=== PATIENT | female | born 1970 | race Two or more races ===

== ENCOUNTER 2017-03-27 09:37 | Inpatient (IN) | payer MEDICAID ==
[~2017-03-27] VITALS: Ht 162.6 cm; Wt 81.0 kg
[2017-03-27 10:27] LABS: Basophils # (auto) 0 uL; Basophils % (auto) 0.4 % (0.0-2.0); CONDITION Y; Eosinophils # (auto) 0 uL; Eosinophils % (auto) 0.5 % (0.0-7.0); Hematocrit 38.3 % (36.0-46.0); Hemoglobin 12.6 g/dL (12.2-16.2); Lymphocytes # (auto) 2.4 uL; Lymphocytes % (auto) 32.3 % (10.0-50.0); Mean Corpuscular Hemoglobin 29.4 pg (28.0-32.0); Mean Corpuscular Hgb Conc. 32.9 g/dL (32.0-36.0); Mean Corpuscular Volume 89.4 fL (80.0-100.0); Mean Platelet Volume 8.5 fL (7.4-10.4); Monocytes # (auto) 0.4 uL; Monocytes % (auto) 5.3 % (0.0-12.0); Neutrophils # (auto) 4.5 uL; Neutrophils % (auto) 61.5 % (37.0-80.0); Platelet Count (auto) 331 10^3/uL (140-450); Red Cell Distribution Width 14.2 % (11.6-16.0); White Blood Cell 7.4 10^3/uL (4.4-10.8)
[2017-03-27] MEDS ORDERED: MORPHINE SULF INJ 2 MG/ML SYRINGE 1ML IV ONE (10:30)
[2017-03-27] MEDS ORDERED: ONDANSETRON HCL 4 MG/2 ML VIAL IV ONE (10:30)
[2017-03-27 10:43] LABS: Urine Bilirubin Negative (Negative); Urine Blood 2+ /uL (Negative); Urine Color Yellow (Yellow); Urine Glucose Normal (Normal); Urine Ketone Negative (Negative); Urine Mucus FEW (None Seen); Urine Nitrite Negative (Negative); Urine RBC 7 /hpf (0 - 4); Urine Squamous Epithelial Cell FEW /hpf (<5); Urine Urobilinogen Normal (Negative); Urine pH 6.5 (5.0-8.0)
[2017-03-27] MEDS ORDERED: SODIUM CHLORIDE 0.9% 1,000 ML IV ONE (10:45)
[2017-03-27 10:50] LABS: Albumin 3.4 g/dL (3.4-5.0); BUN/Creatinine Ratio 16.1; Bilirubin, Total 0.3 mg/dL (0.2-1.0); Calcium 8.6 mg/dL (8.5-10.1); Potassium 3.7 mmol/L (3.5-5.1); Total Protein 7.1 g/dL (6.4-8.2)
[2017-03-27] MEDS ORDERED: cefTRIAXone 1GM/50ML D5W 50 ML IV ONE (11:30)
[2017-03-27 11:38] LABS: INR 0.94 (0.9-1.15); Partial Thromboplastin Time 26.7 sec (22.64-33.71); Prothrombin Time 10.2 sec (9.37-12.3)
[2017-03-27] MEDS ORDERED: LORazepam 0.5 MG TAB PO PRN (11:45)
[2017-03-27] MEDS ORDERED: ACETAMINOPHEN 500 MG TAB PO PRN (11:45)
[2017-03-27] MEDS ORDERED: TEMAZEPAM 15 MG CAP PO PRN (11:45)
[2017-03-27] MEDS: metroNIDAZOLE 500MG/100ML 100 ML IV SCH ×2 (12:54→17:21)
[2017-03-27] MEDS: FAMOTIDINE (10MG/ML) 2ML VL IV SCH ×2 (12:54→20:48)
[2017-03-27] MEDS: SODIUM CHLORIDE 0.9% 1,000 ML IV SCH ×2 (12:54→20:48)
[2017-03-27 15:00] VITALS: BP 140/74
[2017-03-27 16:34] VITALS: BP 140/74
[2017-03-27 17:00] VITALS: BP 135/73
[2017-03-27] MEDS: MORPHINE SULFATE 4 MG/ML SYRG IV PRN (17:22)
[2017-03-27] MEDS: PROMETHAZINE HCL 25 MG/ML 1ML IV PRN (17:22)
[2017-03-27 22:00] VITALS: BP 111/57
[2017-03-28] MEDS: metroNIDAZOLE 500MG/100ML 100 ML IV SCH ×5 (00:19→23:38)
[2017-03-28 04:39] VITALS: BP 92/50
[2017-03-28 06:02] LABS: Basophils # (auto) 0 uL; Basophils % (auto) 0.5 % (0.0-2.0); CONDITION Y; Eosinophils # (auto) 0.1 uL; Eosinophils % (auto) 1.3 % (0.0-7.0); Hematocrit 33.7 % (36.0-46.0); Lymphocytes # (auto) 3.1 uL; Lymphocytes % (auto) 40.3 % (10.0-50.0); Mean Corpuscular Hemoglobin 29.3 pg (28.0-32.0); Mean Corpuscular Hgb Conc. 32.7 g/dL (32.0-36.0); Mean Corpuscular Volume 89.6 fL (80.0-100.0); Mean Platelet Volume 8.5 fL (7.4-10.4); Monocytes # (auto) 0.5 uL; Monocytes % (auto) 6.1 % (0.0-12.0); Neutrophils % (auto) 51.8 % (37.0-80.0); Platelet Count (auto) 276 10^3/uL (140-450); Red Cell Distribution Width 14.4 % (11.6-16.0); White Blood Cell 7.7 10^3/uL (4.4-10.8)
[2017-03-28 06:31] LABS: Albumin 2.8 g/dL (3.4-5.0); BUN/Creatinine Ratio 12.5; Bilirubin, Total 0.4 mg/dL (0.2-1.0); Calcium 7.9 mg/dL (8.5-10.1); Potassium 3.8 mmol/L (3.5-5.1)
[2017-03-28 07:18] VITALS: BP 95/52
[2017-03-28] MEDS: SODIUM CHLORIDE 0.9% 1,000 ML IV SCH ×2 (10:59→17:43)
[2017-03-28] MEDS: cefTRIAXone 1GM/50ML D5W 50 ML IV SCH (10:59)
[2017-03-28 11:45] VITALS: BP 117/65
[2017-03-28] MEDS: BOOST PLUS 8 ounce PO SCH ×3 (12:58→22:00)
[2017-03-28] MEDS: FAMOTIDINE (10MG/ML) 2ML VL IV SCH ×2 (15:29→22:00)
[2017-03-28 16:29] VITALS: BP 127/65
[2017-03-28] MEDS: SUCRALFATE 1 GM/10 ML ORAL SUSP PO SCH ×2 (17:24→22:00)
[2017-03-28 22:00] VITALS: BP 116/66
[2017-03-28] MEDS ORDERED: LORazepam 2MG/ML-1ML VIAL IV PRN (22:00)
[2017-03-29] MEDS: SODIUM CHLORIDE 0.9% 1,000 ML IV SCH ×3 (03:06→21:07)
[2017-03-29 05:00] VITALS: BP 99/54
[2017-03-29] MEDS: BOOST PLUS 8 ounce PO SCH ×4 (05:14→21:07)
[2017-03-29] MEDS: SUCRALFATE 1 GM/10 ML ORAL SUSP PO SCH ×4 (05:14→21:07)
[2017-03-29] MEDS: metroNIDAZOLE 500MG/100ML 100 ML IV SCH ×3 (05:14→17:24)
[2017-03-29 06:37] LABS: Calcium 8.2 mg/dL (8.5-10.1)
[2017-03-29 06:39] LABS: BUN/Creatinine Ratio 8.6
[2017-03-29 06:42] LABS: Bilirubin, Total 0.3 mg/dL (0.2-1.0); Total Protein 6.7 g/dL (6.4-8.2)
[2017-03-29 07:50] VITALS: BP 118/63
[2017-03-29 07:52] LABS: Basophils # (auto) 0 uL; Basophils % (auto) 0.4 % (0.0-2.0); CONDITION Y; Eosinophils # (auto) 0.1 uL; Eosinophils % (auto) 1.2 % (0.0-7.0); Hematocrit 39.7 % (36.0-46.0); Hemoglobin 12.9 g/dL (12.2-16.2); Lymphocytes # (auto) 2.2 uL; Lymphocytes % (auto) 23.9 % (10.0-50.0); Mean Corpuscular Hemoglobin 30.1 pg (28.0-32.0); Mean Corpuscular Hgb Conc. 32.6 g/dL (32.0-36.0); Mean Corpuscular Volume 92.3 fL (80.0-100.0); Mean Platelet Volume 8.8 fL (7.4-10.4); Monocytes # (auto) 0.5 uL; Monocytes % (auto) 5.3 % (0.0-12.0); Neutrophils # (auto) 6.3 uL; Neutrophils % (auto) 69.2 % (37.0-80.0); Platelet Count (auto) 253 10^3/uL (140-450); Red Cell Distribution Width 14.4 % (11.6-16.0); White Blood Cell 9.1 10^3/uL (4.4-10.8)
[2017-03-29 08:00] VITALS: BP 118/63
[2017-03-29] MEDS: cefTRIAXone 1GM/50ML D5W 50 ML IV SCH (09:17)
[2017-03-29 12:04] VITALS: BP_SYST 116; BP_SYST 130; BP_DIAS 75; BP_DIAS 83
[2017-03-29] MEDS: FAMOTIDINE (10MG/ML) 2ML VL IV SCH ×2 (12:24→21:07)
[2017-03-29 17:15] VITALS: BP 118/72
[2017-03-29 22:00] VITALS: BP 125/70
[2017-03-30 05:00] VITALS: BP 120/65
[2017-03-30] MEDS: metroNIDAZOLE 500MG/100ML 100 ML IV SCH ×5 (05:54→23:37)
[2017-03-30] MEDS: SUCRALFATE 1 GM/10 ML ORAL SUSP PO SCH ×4 (05:54→21:04)
[2017-03-30] MEDS: BOOST PLUS 8 ounce PO SCH ×4 (05:54→22:03)
[2017-03-30 06:14] LABS: Basophils # (auto) 0 uL; Basophils % (auto) 0.1 % (0.0-2.0); CONDITION Y; Eosinophils # (auto) 0.1 uL; Eosinophils % (auto) 0.7 % (0.0-7.0); Hematocrit 39.2 % (36.0-46.0); Lymphocytes # (auto) 1.9 uL; Lymphocytes % (auto) 15.3 % (10.0-50.0); Mean Corpuscular Hemoglobin 29.6 pg (28.0-32.0); Mean Corpuscular Hgb Conc. 33.3 g/dL (32.0-36.0); Mean Platelet Volume 8.6 fL (7.4-10.4); Monocytes # (auto) 0.6 uL; Monocytes % (auto) 4.8 % (0.0-12.0); Neutrophils # (auto) 9.7 uL; Neutrophils % (auto) 79.1 % (37.0-80.0); Platelet Count (auto) 322 10^3/uL (140-450); Red Cell Distribution Width 14.4 % (11.6-16.0); White Blood Cell 12.3 10^3/uL (4.4-10.8)
[2017-03-30 08:10] VITALS: BP 102/70
[2017-03-30] MEDS: cefTRIAXone 1GM/50ML D5W 50 ML IV SCH (09:00)
[2017-03-30] MEDS: SODIUM CHLORIDE 0.9% 1,000 ML IV SCH ×2 (09:43→19:43)
[2017-03-30] MEDS: FAMOTIDINE (10MG/ML) 2ML VL IV SCH ×2 (09:55→23:37)
[2017-03-30 10:33] LABS: Albumin 3.2 g/dL (3.4-5.0); Bilirubin, Total 0.2 mg/dL (0.2-1.0); Calcium 8.6 mg/dL (8.5-10.1); Potassium 3.7 mmol/L (3.5-5.1)
[2017-03-30 10:37] LABS: INR 0.95 (0.9-1.15); Partial Thromboplastin Time 23.8 sec (22.64-33.71); Prothrombin Time 10.3 sec (9.37-12.3)
[2017-03-30 12:30] VITALS: BP 105/58
[2017-03-30 16:25] VITALS: BP 117/66
[2017-03-30] MEDS: HYDROcodone-ACET 5/325MG TAB PO PRN (21:05)
[2017-03-30 22:00] VITALS: BP 142/75
[2017-03-31 05:00] VITALS: BP 96/53
[2017-03-31] MEDS: SODIUM CHLORIDE 0.9% 1,000 ML IV SCH ×2 (05:43→15:43)
[2017-03-31] MEDS: BOOST PLUS 8 ounce PO SCH ×5 (06:00→22:00)
[2017-03-31] MEDS: metroNIDAZOLE 500MG/100ML 100 ML IV SCH ×4 (06:22→23:49)
[2017-03-31] MEDS: SUCRALFATE 1 GM/10 ML ORAL SUSP PO SCH ×4 (06:25→22:04)
[2017-03-31 06:48] LABS: Basophils # (auto) 0 uL; Basophils % (auto) 0.5 % (0.0-2.0); CONDITION Y; Eosinophils # (auto) 0.2 uL; Eosinophils % (auto) 2.5 % (0.0-7.0); Hematocrit 36.3 % (36.0-46.0); Hemoglobin 12.2 g/dL (12.2-16.2); Lymphocytes # (auto) 2.6 uL; Mean Corpuscular Hgb Conc. 33.6 g/dL (32.0-36.0); Mean Corpuscular Volume 89.2 fL (80.0-100.0); Mean Platelet Volume 8.4 fL (7.4-10.4); Monocytes # (auto) 0.6 uL; Monocytes % (auto) 7.5 % (0.0-12.0); Neutrophils # (auto) 4.9 uL; Neutrophils % (auto) 58.5 % (37.0-80.0); Platelet Count (auto) 314 10^3/uL (140-450); Red Cell Distribution Width 14.3 % (11.6-16.0); White Blood Cell 8.4 10^3/uL (4.4-10.8)
[2017-03-31 07:10] LABS: Bilirubin, Total 0.2 mg/dL (0.2-1.0); Calcium 7.9 mg/dL (8.5-10.1); Total Protein 6.5 g/dL (6.4-8.2)
[2017-03-31] MEDS: cefTRIAXone 1GM/50ML D5W 50 ML IV SCH (08:11)
[2017-03-31] MEDS ORDERED: METOCLOPRAMIDE HCL 5MG/ml INJ 2ml VIAL IV ONE (08:45)
[2017-03-31] MEDS ORDERED: HYDROmorphone HCL 2 MG/ML VL IV PRN (08:45)
[2017-03-31] MEDS ORDERED: KETOROLAC TROMETH 30 MG/ML 1ML VIAL IV ONE (08:45)
[2017-03-31] MEDS ORDERED: GLYCOPYRROLATE 0.2 MG/ML 1ML VIAL ONE (08:54)
[2017-03-31] MEDS ORDERED: KETOROLAC TROMETH 60MG/2ML VIAL IM ONE (08:54)
[2017-03-31] MEDS ORDERED: NEOSTIGMINE 1 MG/ML INJ (10mg/10ML VIAL) ONE (08:54)
[2017-03-31] MEDS ORDERED: SODIUM CHLORIDE LOCK 10 ML ONE (08:54)
[2017-03-31] MEDS ORDERED: PROPOFOL 10 MG/ML 20 ML IV ONE (08:54)
[2017-03-31] MEDS ORDERED: ROCURONIUM 10MG/ML 10ML VIAL IV ONE (08:54)
[2017-03-31] MEDS ORDERED: MEPERIDINE HCL (50 MG/ML) 1 ML VIAL ONE (08:54)
[2017-03-31] MEDS ORDERED: MIDAZOLAM HCL 1MG/1ML-2 ML VIAL ONE (08:54)
[2017-03-31] MEDS ORDERED: fentaNYL CITRATE 100 MCG/2 ML VL ONE (08:54)
[2017-03-31] MEDS: MORPHINE SULFATE 4 MG/ML SYRG IV PRN ×2 (11:32→18:38)
[2017-03-31] MEDS: PROMETHAZINE HCL 25 MG/ML 1ML IV PRN ×2 (11:32→18:38)
[2017-03-31] MEDS: FAMOTIDINE (10MG/ML) 2ML VL IV SCH ×2 (11:45→23:49)
[2017-03-31 13:00] VITALS: BP 163/74
[2017-03-31] MEDS: HYDROcodone-ACET 5/325MG TAB PO PRN ×2 (14:58→20:40)
[2017-03-31 16:39] VITALS: BP 161/95
[2017-03-31 23:07] VITALS: BP 126/69
[2017-04-01] VITALS (7 sets, daily range): BP systolic 100–129; BP diastolic 57–68
[2017-04-01] MEDS: SODIUM CHLORIDE 0.9% 1,000 ML IV SCH ×3 (01:43→22:33)
[2017-04-01 05:11] LABS: Basophils # (auto) 0 uL; Basophils % (auto) 0.1 % (0.0-2.0); CONDITION Y; Eosinophils # (auto) 0 uL; Hematocrit 34.6 % (36.0-46.0); Hemoglobin 11.5 g/dL (12.2-16.2); Lymphocytes # (auto) 1.4 uL; Lymphocytes % (auto) 9.1 % (10.0-50.0); Mean Corpuscular Hemoglobin 29.8 pg (28.0-32.0); Mean Corpuscular Hgb Conc. 33.2 g/dL (32.0-36.0); Mean Corpuscular Volume 89.7 fL (80.0-100.0); Mean Platelet Volume 8.7 fL (7.4-10.4); Monocytes # (auto) 0.9 uL; Monocytes % (auto) 6.1 % (0.0-12.0); Neutrophils # (auto) 13.2 uL; Neutrophils % (auto) 84.7 % (37.0-80.0); Platelet Count (auto) 314 10^3/uL (140-450); Red Cell Distribution Width 14.6 % (11.6-16.0); White Blood Cell 15.5 10^3/uL (4.4-10.8)
[2017-04-01 05:35] LABS: Albumin 2.8 g/dL (3.4-5.0); Calcium 7.8 mg/dL (8.5-10.1); Potassium 4.2 mmol/L (3.5-5.1)
[2017-04-01 05:38] LABS: BUN/Creatinine Ratio 13.8
[2017-04-01 05:40] LABS: Bilirubin, Total 0.3 mg/dL (0.2-1.0); Total Protein 6.4 g/dL (6.4-8.2)
[2017-04-01] MEDS: metroNIDAZOLE 500MG/100ML 100 ML IV SCH ×3 (05:59→17:25)
[2017-04-01] MEDS: BOOST PLUS 8 ounce PO SCH ×4 (06:00→22:33)
[2017-04-01] MEDS: MORPHINE SULFATE 4 MG/ML SYRG IV PRN ×4 (06:15→22:34)
[2017-04-01] MEDS: SUCRALFATE 1 GM/10 ML ORAL SUSP PO SCH ×4 (06:15→22:33)
[2017-04-01] MEDS: PROMETHAZINE HCL 25 MG/ML 1ML IV PRN ×2 (06:15→10:01)
[2017-04-01] MEDS: cefTRIAXone 1GM/50ML D5W 50 ML IV SCH (08:49)
[2017-04-01] MEDS: FAMOTIDINE (10MG/ML) 2ML VL IV SCH (10:01)
[2017-04-02] VITALS (7 sets, daily range): BP systolic 94–116; BP diastolic 51–65
[2017-04-02] MEDS: FAMOTIDINE (10MG/ML) 2ML VL IV SCH ×2 (00:08→11:16)
[2017-04-02] MEDS: metroNIDAZOLE 500MG/100ML 100 ML IV SCH ×4 (00:08→17:12)
[2017-04-02] MEDS: SUCRALFATE 1 GM/10 ML ORAL SUSP PO SCH ×3 (05:59→16:30)
[2017-04-02] MEDS: BOOST PLUS 8 ounce PO SCH ×3 (05:59→17:12)
[2017-04-02 06:03] LABS: Basophils # (auto) 0 uL; Basophils % (auto) 0.4 % (0.0-2.0); CONDITION Y; Eosinophils # (auto) 0.1 uL; Eosinophils % (auto) 1.4 % (0.0-7.0); Hematocrit 31.7 % (36.0-46.0); Hemoglobin 10.4 g/dL (12.2-16.2); Lymphocytes # (auto) 3.3 uL; Lymphocytes % (auto) 31.5 % (10.0-50.0); Mean Corpuscular Hemoglobin 29.8 pg (28.0-32.0); Mean Corpuscular Hgb Conc. 32.9 g/dL (32.0-36.0); Mean Corpuscular Volume 90.5 fL (80.0-100.0); Monocytes # (auto) 0.8 uL; Monocytes % (auto) 7.7 % (0.0-12.0); Neutrophils # (auto) 6.1 uL; Platelet Count (auto) 290 10^3/uL (140-450); Red Cell Distribution Width 15.1 % (11.6-16.0); White Blood Cell 10.4 10^3/uL (4.4-10.8)
[2017-04-02 06:38] LABS: Albumin 2.8 g/dL (3.4-5.0); BUN/Creatinine Ratio 18.5; Bilirubin, Total 0.2 mg/dL (0.2-1.0); Calcium 7.7 mg/dL (8.5-10.1); Potassium 3.9 mmol/L (3.5-5.1)
[2017-04-02] MEDS: cefTRIAXone 1GM/50ML D5W 50 ML IV SCH (08:58)
[2017-04-02] MEDS: SODIUM CHLORIDE 0.9% 1,000 ML IV SCH ×2 (08:58→17:12)
== END 2017-04-02 19:13 | disposition home or self-care (01) | DRG 263 ==
LOC: ER 09:38 → OVERFLOW 09:39 → WEST WING 15:14
PROVIDERS: ADMIT Internal Medicine; ATTEND Internal Medicine Pulmonary Disease
PROC: 0FT44ZZ Resection of Gallbladder, Percutaneous Endoscopic Approach (ICD-10-PCS; principal; 2017-03-31 08:39)
DX: K80.00 Calculus of gallbladder with acute cholecystitis without obstruction (principal); E44.0 Moderate protein-calorie malnutrition; N39.0 Urinary tract infection, site not specified; D63.8 Anemia in other chronic diseases classified elsewhere; E66.9 Obesity, unspecified; E88.09 Other disorders of plasma-protein metabolism, not elsewhere classified; Z82.49 Family history of ischemic heart disease and other diseases of the circulatory system; Z68.30 Body mass index [BMI] 30.0-30.9, adult; Z90.49 Acquired absence of other specified parts of digestive tract
CPT/HCPCS: 36415; 70450; 70551; 71010; 74176; 78226; 80053; 80061; 81001; 81025; 82150; 82270; 82378; 83690; 84702; 85025; 85610; 85652; 85730; 86141; 86850; 86900; 86901; 87086; 87493; 88304; 93005; 94761; 96365; 96375; J0696; J1885; J2250; J2405; J2704; J3490